=== PATIENT | male | born 2000 | race Caucasian/White ===

== ENCOUNTER → 2021-03-30 | Outpatient (CLI) | payer OTHER ==
--- NOTE | 2021-03-31 07:09 | RAD ---
INDICATION: Reason: RLQ PAIN WITH DIARREA TIMES 10 DAYS / Spl. Instructions: / History: COMPARISON: None. IMPRESSION: Abdomen: 2 views obtained. Air scattered throughout the large and small bowel in a grossly nonobstruc tive pattern. No gross osseous destructive lesion. Electronically signed by: Vivek Thornton MD (03/31/2021 7:06 AM) [id number]
== END ==
LOC: RAD 16:28
PROVIDERS: ATTEND Physician Assistant
DX: R19.7 Diarrhea, unspecified (principal)
CPT/HCPCS: 74019

== ENCOUNTER → 2021-06-26 | Outpatient (CLI) | payer OTHER ==
--- NOTE | 2021-06-26 15:15 | RAD ---
EXAM: Chest, 2 views. HISTORY: Upper respiratory infection. COMPARISON: None. FINDINGS: 2 views of the chest are obtained. There is no infiltrate, pleural effusion or pneumothorax . The heart is normal in size. IMPRESSION: No acute pulmonary finding. Electronically signed by: Ria Pacheco MD (06/26/2021 3:12 PM) [id number]
== END ==
LOC: PMG 14:59
PROVIDERS: ATTEND Nurse Practitioner Family
DX: R07.89 Other chest pain (principal)
CPT/HCPCS: 71046